=== PATIENT | female | born 1985 | race Caucasian/White ===

== ENCOUNTER 2017-05-13 17:28 | Emergency (ER) | payer OTHER ==
[~2017-05-13] VITALS: Ht 157.5 cm; Wt 65.9 kg
--- NOTE | 2017-05-13 18:45 | REP ---
RIGHT ANKLE SERIES: Four views of the right ankle are performed. There is moderate lateral soft tissue swelling. There is no evidence of acute fracture or dislocation. The ankle mortise is anatomic. IMPRESSION: Soft tissue swelling without fracture or dislocation. Signed by Antony Meléndez MD 05/13/2017 08:12 P
[2017-05-13] MEDS ORDERED: NAPR500T PO (19:08)
[2017-05-13] MEDS ORDERED: NORCO, ANEXSIA 5/325MG TABLET (HYDROcodone/ACETAMINOPHEN) PO ONE (19:15)
[2017-05-13 19:25] VITALS: BP 134/94
== END 2017-05-13 19:32 | disposition home or self-care (01) ==
LOC: MERGE 17:28 → M ED 17:28
DX: S93.491A Sprain of other ligament of right ankle, initial encounter (principal); W17.89XA Other fall from one level to another, initial encounter; X50.9XXA Other and unspecified overexertion or strenuous movements or postures, initial encounter; Y92.091 Bathroom in other non-institutional residence as the place of occurrence of the external cause; Y93.89 Activity, other specified; Y99.8 Other external cause status

== ENCOUNTER → 2017-06-22 | Outpatient (REF) | payer OTHER | LOC: M LAB REF 17:21 | DX: J35.8 Other chronic diseases of tonsils and adenoids (principal) | CPT/HCPCS: 87186 ==

== ENCOUNTER 2022-12-20 10:12 | Emergency (ER) | payer OTHER ==
[~2022-12-20] VITALS: Ht 157.5 cm; Wt 76.7 kg
[~2022-12-20 10:12] MED LIST: NAPR-837 PO
[2022-12-20] MEDS ORDERED: ISON300T18 (11:29)
[2022-12-20] MEDS ORDERED: VENL37.598 (11:29)
[2022-12-20 12:00] LABS: BASO # 0.1 10^3/uL (0.0-0.2); BASO % 0.3 % (0.0-1.0); EOS # 0.1 10^3/uL (0.0-0.5); EOS % 0.3 % (0.0-3.0); LYMPH # 3.1 10^3/uL (1.5-5.0); LYMPH % 19.1 % (24.0-44.0); MEAN CORPUSCULAR HEMOGLOBIN 31.9 pg (27.0-33.0); MEAN CORPUSCULAR HGB CONC 33.3 g/dl (32.0-36.5); MEAN CORPUSCULAR VOLUME 95.7 fl (80.0-96.0); MONO # 0.6 10^3/uL (0.0-0.8); MONO % 3.5 % (2.0-8.0); NEUTROPHILS # 12.2 10^3/uL (1.5-8.5); NEUTROPHILS % 76.2 % (36.0-66.0); PLATELET COUNT, AUTOMATED 340 10^3/uL (150-450); RED BLOOD COUNT 4.39 10^6/uL (4.00-5.40)
[2022-12-20 12:29] LABS: LIPASE 45 U/L (12-53)
[2022-12-20] MEDS ORDERED: KETOROLAC 30 MG/ML 1ML VIAL IV ONE (12:30)
[2022-12-20] MEDS ORDERED: NS 1,000 ML IV ONE (12:30)
[2022-12-20 12:31] LABS: ALBUMIN 3.8 G/DL (3.2-5.2); ALKALINE PHOSPHATASE 80 U/L (46-116); ALT/SGPT 21 U/L (7.0-40); AST/SGOT 17 U/L (<34); BILIRUBIN,DIRECT < 0.1 MG/DL (<0.4); BILIRUBIN,TOTAL 0.3 MG/DL (0.3-1.2); BLOOD UREA NITROGEN 19 MG/DL (9-23); CALCIUM LEVEL 9.1 MG/DL (8.5-10.1); CARBON DIOXIDE LEVEL 25 MMOL/L (20-31); CHLORIDE LEVEL 105 MMOL/L (98-107); CREATININE FOR GFR 0.63 MG/DL (0.55-1.30); GLOMERULAR FILTRATION RATE > 60.0 (>60); GLUCOSE, FASTING 82 MG/DL (60-100); POTASSIUM SERUM 4.5 MMOL/L (3.5-5.1); SODIUM LEVEL 136 MMOL/L (136-145); TOTAL PROTEIN 7.4 G/DL (5.7-8.2)
[2022-12-20] MEDS ORDERED: ISOVUE-370 76% 100ML VIAL As Ordered ONE (12:53)
[2022-12-20 17:29] LABS: GC DNA AMPLIFICATION NEGATIVE (NEGATIVE)
[2022-12-20] MEDS ORDERED: cefTRIAXone SOD 500 MG in D5W MINI-BAG PLUS 50 ML IV ONE (17:35)
[2022-12-20] MEDS ORDERED: DOXY-443 PO (17:44)
[2022-12-20] MEDS ORDERED: METR-265 PO (17:44)
[2022-12-20 18:25] VITALS: BP 140/70; TEMP 98.5; O2SAT 99
== END 2022-12-20 18:32 | disposition home or self-care (01) ==
LOC: M ED 10:12
DX: R19.04 Left lower quadrant abdominal swelling, mass and lump (principal); N73.9 Female pelvic inflammatory disease, unspecified; F41.9 Anxiety disorder, unspecified; Z86.19 Personal history of other infectious and parasitic diseases; Z79.899 Other long term (current) drug therapy
CPT/HCPCS: 74177; 76856; 80047; 80048; 80076; 81001; 83605; 83690; 84702; 85025; 87661; 87810; 87850; 93976; 96361; 96365; 96375; 99284; J0696; J1885; Q9967

== ENCOUNTER 2023-03-03 19:45 | Emergency (ER) | payer OTHER ==
[~2023-03-03] VITALS: Ht 157.5 cm; Wt 79.4 kg
[~2023-03-03 19:45] MED LIST changes: +DOXY-443 PO; +ISON300T18; +METR-265 PO; +VENL37.598
[2023-03-03] MEDS ORDERED: CEPH250T PO (19:59)
[2023-03-03 23:29] VITALS: BP 113/66; TEMP 100.3; O2SAT 96
== END 2023-03-04 03:13 | disposition left against medical advice (07) ==
LOC: M ED 19:45
DX: Z53.21 Procedure and treatment not carried out due to patient leaving prior to being seen by health care provider (principal)

== ENCOUNTER → 2024-04-30 | Outpatient (CLI) | payer OTHER ==
[~2024-04-30] MED LIST changes: +CEPH250T PO; +DOXY-441 PO; -DOXY-443 PO
== END ==
LOC: M WHC 14:38
PROVIDERS: ATTEND Nurse Practitioner Family
DX: Z12.31 Encounter for screening mammogram for malignant neoplasm of breast (principal)

== ENCOUNTER → 2024-05-15 | Outpatient (CLI) | payer OTHER | LOC: M WHC 08:01 | PROVIDERS: ATTEND Nurse Practitioner Family | DX: Z12.31 Encounter for screening mammogram for malignant neoplasm of breast (principal) ==

== ENCOUNTER → 2025-01-08 | Outpatient (CLI) | payer OTHER ==
[~2025-01-08] MED LIST changes: +ISON1TAB5; -ISON300T18
== END ==
LOC: M WHC 12:23
PROVIDERS: ATTEND Family Medicine
DX: N63.20 Unspecified lump in the left breast, unspecified quadrant (principal)
CPT/HCPCS: 77065; G0279